=== PATIENT | female | born 1960 | race Caucasian/White ===

== ENCOUNTER → 2016-06-14 | Outpatient (CLI) | payer BC ==
[~2016-06-14] MED LIST: AMIT100T2 PO; AMT50 PO; BUSP-8 PO; CALC-354 PO; CYCL10TA6 PO; DOCU-94 PO; FRCT/ PO; GABA-113 PO; MELO15TA4 PO; MELO7.5T5 PO; METH500T37 PO; MISCCAP80 PO; MOML PO; MULT-506 PO; MULT-920 PO; NITR-5 PO; ONDA4TAB46 PO; PRM625 PO; PROC1TAB5 PO; TRAM-10 PO; TRAZ100T29 PO; VALA500T60 PO; ZOLM1TAB3 PO; [UNRECOGNIZED DRUG - OTHER]
== END | disposition home or self-care (01) ==
LOC: C.PAPS 16:12
PROVIDERS: ATTEND Obstetrics & Gynecology
DX: Z01.419 Encounter for gynecological examination (general) (routine) without abnormal findings (principal)

== ENCOUNTER → 2016-07-19 | Outpatient (CLI) | payer BC, OTHER | END | disposition home or self-care (01) | LOC: C.LAB 17:53 | PROVIDERS: ATTEND Psychiatry & Neurology Neurology | DX: R51 Headache (principal) ==

== ENCOUNTER → 2016-08-01 | Outpatient (CLI) | payer BC, OTHER ==
--- NOTE | 2016-08-01 16:14 | DIAGNOSTIC IMAGING REPORT ---
LUMBAR SPINE 5 VIEWS HISTORY: Pain M54.5 Low back pain COMPARISON: None. FINDINGS: There is no fracture. No subluxation. Mild degenerative disc change. Slight scoliosis. No evidence for compression deformity. IMPRESSION: Slight scoliosis. Mild degenerative disc change throughout Electronically signed by: Gen Valero M.D. 08/01/2016 4:13 PM Dictated Date/Time: 08/01/2016 4:12 PM
--- NOTE | 2016-08-01 16:16 | DIAGNOSTIC IMAGING REPORT ---
THORACIC SPINE 3 VIEWS HISTORY: Pain M54.6 Thoracic back pain COMPARISON: None. FINDINGS: There is no fracture. No subluxation. Mild degenerative disc change IMPRESSION: Mild degenerative disc change. No acute bony abnormality. Electronically signed by: Gen Valero M.D. 08/01/2016 4:15 PM Dictated Date/Time: 08/01/2016 4:14 PM
--- NOTE | 2016-08-01 16:18 | DIAGNOSTIC IMAGING REPORT ---
LEFT FOOT 3 VIEWS CLINICAL HISTORY: Left foot pain. FINDINGS: 3 views of the left foot are obtained. No prior studies are available for comparison at the time of dictation. The skeletal structures are osteopenic. No fracture is seen. The joint spaces of the foot appear well-maintained. The overlying soft tissues are within normal limits. IMPRESSION: No acute bony abnormality is seen in the left foot. Electronically signed by: Jose Manuel Noble M.D. 08/01/2016 4:16 PM Dictated Date/Time: 08/01/2016 4:15 PM
== END | disposition home or self-care (01) ==
LOC: C.RAD1850 14:28
PROVIDERS: ATTEND Internal Medicine
DX: M54.6 Pain in thoracic spine (principal); M54.5 Low back pain; M79.672 Pain in left foot

== ENCOUNTER → 2016-08-11 | Outpatient (CLI) | payer BC, OTHER ==
--- NOTE | 2016-08-11 16:47 | MAMMOGRAPHY REPORT ---
BILATERAL DIGITAL SCREENING MAMMOGRAM TOMOSYNTHESIS WITH CAD: 08/11/2016 TECHNIQUE: Breast tomosynthesis in addition to standard 2D mammography was performed. Current study was also evaluated with a Computer Aided Detection (CAD) system. COMPARISON: Comparison is made to exams dated: 03/25/2013 mammogram, 05/14/2014 mammogram - [facility], 12/19/2011 mammogram, 12/06/2010 mammogram, 11/22/2010 mammogram, and 05/16/2013 ma mmogram - [facility]. BREAST COMPOSITION: The tissue of both breasts is heterogeneously dense, which may obscure small ma sses. FINDINGS: There is a new oval partially circumscribed and partially obscured 15 mm mass seen within the left lateral breast at approximately 3:00, for which ultrasound and possible additional spot co mpression views are recommended for further evaluation. This may represent a cyst. The remainder of both breasts demonstrate small scattered round/oval circumscribed benign-appearing masses bilaterally, which are considered benign given the multiplicity and bilaterality and likely r epresent cysts. Scattered bilateral benign-appearing calcifications are not significantly changed. IMPRESSION: ACR BI-RADS CATEGORY 0: INCOMPLETE EVALUATION: NEED ADDITIONAL IMAGING EVALUATION Left 3:00 breast mass, for which additional imaging evaluation is recommended. The patient will be called to schedule an appointment. Approximately 10% of breast cancers are not detected with mammography. A negative mammographic repor t should not delay biopsy if a clinically suggestive mass is present. Kaylen Chambers M.D. ah/:08/11/2016 16:39:32 Service Support Representative: Makeda CAVAZOS(R)(M), [facility] letter sent: Addl Imaging 0 BI-RADS Code: ACR BI-RADS Category 0: Incomplete Evaluation: Need Additional Imaging Evaluation
== END | disposition home or self-care (01) ==
LOC: C.MAMM 13:27
PROVIDERS: ATTEND Obstetrics & Gynecology
DX: N63 Unspecified lump in breast (principal)

== ENCOUNTER → 2016-09-01 | Outpatient (CLI) | payer BC, OTHER ==
--- NOTE | 2016-09-01 16:36 | MAMMOGRAPHY REPORT ---
ULTRASOUND OF LEFT BREAST: 09/01/2016 CLINICAL HISTORY: Callback from screening mammogram for a 15 mm mass in the left lateral breast. COMPARISON: Comparison is made to exams dated: 08/11/2016 mammogram, 05/14/2014 mammogram, 05/31/2013 aspiration, 05/16/2013 ultrasound, 05/16/2013 mammogram, and 03/25/2013 mammogram - [facility]. TECHNIQUE: Real-time targeted ultrasound of the left breast was performed. FINDINGS: Real-time, high resolution targeted ultrasound was performed of the area of the mammographic mass in the left lateral breast. In the left breast at 4:00, 5 cm from the nipple, there is an oval anecho ic circumscribed mass which measures 1.3 x 0.6 x 1.3 cm. This corresponds with the newly visualized mammographic mass and is consistent with a benign simple cyst. IMPRESSION: ACR BI-RADS CATEGORY 2: BENIGN The mammographic mass corresponds with a benign 1.3 cm simple cyst in the left breast at 4:00 on ult rasound. There is no sonographic evidence of malignancy. A 1 year screening mammogram is recommend ed. The patient was verbally notified of the results. Kaylen Chambers M.D. /:09/01/2016 14:36:49 Music Artist: Kaylen Chambers MD, [facility] letter sent: Normal 1/2 BI-RADS Code: ACR BI-RADS Category 2: Benign
== END | disposition home or self-care (01) ==
LOC: C.MAMM 13:56
PROVIDERS: ATTEND Obstetrics & Gynecology
DX: N60.02 Solitary cyst of left breast (principal)

== ENCOUNTER → 2016-09-14 | Outpatient (CLI) | payer OTHER ==
[2016-09-14 16:48] LABS: LYME DISEASE AB IGM NEG (NEG)
[2016-09-14 16:51] LABS: LYME DISEASE AB IGG NEG (NEG)
== END | disposition home or self-care (01) ==
LOC: C.LAB1850 12:43
PROVIDERS: ATTEND Internal Medicine
DX: T14.8 Other injury of unspecified body region (principal); W57.XXXA Bitten or stung by nonvenomous insect and other nonvenomous arthropods, initial encounter

== ENCOUNTER → 2016-09-26 | Outpatient (CLI) | payer OTHER ==
[~2016-09-26] MED LIST changes: +GADAVIST IV PRN
--- NOTE | 2016-09-26 11:51 | DIAGNOSTIC IMAGING REPORT ---
MRI LUMBAR SPINE COMBINATION CLINICAL HISTORY: SEVERE BACK PAIN BILATERAL LEG RADICULOPATHY. TECHNIQUE: Sagittal and axial T1, T2 and STIR images were obtained. Imaging was performed before and after the administration of 7 cc of intravenous Gadavist COMPARISON STUDY: Conventional radiographic study dated 08/01/2016 OBSERVATIONS: There is a transitional vertebra present. There is lumbarization of the S1 vertebra. Please see numbering scheme as annotated on the PACS images. The vertebral bodies and posterior elements appear intact. There is no abnormal bony signal present to suggest a marrow replacement process. L1-2: No disc protrusions or extrusions. No evidence of spinal canal or neural foraminal compromise. L2-3: No disc protrusions or extrusions. No evidence of spinal canal or neural foraminal compromise. L3-4: No disc protrusions or extrusions. No evidence of spinal canal or neural foraminal compromise. L4-5: There is a circumferential disc bulge with minimal triangular spinal canal narrowing L5-S1: No disc protrusions or extrusions. No evidence of spinal canal or neural foraminal compromise. The conus medullaris and cauda equina appear normal. There are multiple large sacral Tarlov cysts most pronounced at the S2 and S3 levels. There is sigmoid diverticulosis There is a 24 mm left adnexal cyst likely ovarian. There are no pathologically enhancing masses. IMPRESSION: 1. 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 Disc bulge with interval transverse spinal canal narrowing at the L4-5 level 3. Multiple large sacral Tarlov cysts Electronically signed by: Woodrow Ferrera M.D. 09/26/2016 11:49 AM Dictated Date/Time: 09/26/2016 11:43 AM
== END | disposition home or self-care (01) ==
LOC: C.OPENMRI 09:40
PROVIDERS: ATTEND Internal Medicine
DX: M51.26 Other intervertebral disc displacement, lumbar region (principal); G54.8 Other nerve root and plexus disorders

== ENCOUNTER → 2016-09-30 | Outpatient (CLI) | payer OTHER ==
[~2016-09-30] MED LIST changes: -GADAVIST IV PRN
[2016-09-30 16:46] LABS: BASO % 0.5 %; BASO ABS # 0.03 K/uL (0-0.2); COMPLETE YES; EOS % 2.8 %; HEMATOCRIT 38.8 % (37-47); LYMPH % 24.4 %; LYMPH ABS # 1.47 K/uL (1.2-3.4); MEAN CELL VOLUME 96.3 fL (80-100); MEAN CORPUSCULAR HEMOGLOBIN 30.5 pg (25-34); MEAN CORPUSCULAR HGB CONC 31.7 g/dl (32-36); MEAN PLATELET VOLUME 10.5 fL (7.4-10.4); MONO % 7.8 %; NEUT % 64.5 %; PLATELET COUNT 293 K/uL (130-400); RED BLOOD COUNT 4.03 M/uL (4.2-5.4); WHITE BLOOD COUNT 6.02 K/uL (4.8-10.8)
[2016-09-30 17:04] LABS: CHLORIDE 106 mmol/L (98-107); SODIUM 141 mmol/L (136-145)
[2016-09-30 17:39] LABS: ALKALINE PHOSPHATASE 40 U/L (45-117); ALT/SGPT 24 U/L (12-78); AST/SGOT 17 U/L (15-37); C-REACTIVE PROTEIN < 0.29 mg/dl (0-0.29)
[2016-09-30 19:32] LABS: BLOOD UREA NITROGEN 23 mg/dl (7-18); CARBON DIOXIDE 28 mmol/L (21-32); CREATININE 0.75 mg/dl (0.60-1.20)
== END | disposition home or self-care (01) ==
LOC: C.LABBC 13:38
PROVIDERS: ATTEND Orthopaedic Surgery Orthopaedic Surgery of the Spine
DX: M54.9 Dorsalgia, unspecified (principal)

== ENCOUNTER → 2016-11-03 | Outpatient (CLI) | payer OTHER ==
--- NOTE | 2016-11-16 12:26 | History and Physical ---
History & Physical Date Nov 16, 2016. Chief Complaint Back and lower extremity pain, numbness History of Present Illness The patient is a 56 year old female with complaints of Past Medical/Surgical History ASTHMA, ANXIETY, ANEMIA, OBESITY, NO CARCINOMA, HTN, COPD. SURGICAL: hYSTERECTOMY Additional History Hepatic Disease: No Endocrine Disorder: No Kidney Disease: No Hypertension: No Heart Disease: No Bleeding Tendencies: No Infectious Diseases: No Allergies Coded Allergies: Acetaminophen (Verified Allergy, Unknown, n/v, 11/03/16) Codeine (Verified Allergy, Unknown, hives, 11/03/16) Hydrocodone (Verified Allergy, Unknown, n/v, 11/03/16) Latex1 -Allergic Contact Dermititis (Verified Allergy, Unknown, contact dermatitis, 11/03/16) Home Medications Scheduled Amitriptyline Hcl (Elavil), 100 MG PO HS Buspirone Hcl (Buspirone Hcl), 10 MG PO QAM Calcium Carbonate-Cholecalcife (Caltrate 600+D), 1 TAB PO QAM Estrogens, Conjugated (Premarin), 0.625 MG PO HS Meloxicam (Mobic), 15 MG PO QAM Methocarbamol (Robaxin), 500-1,000 MG PO UD Multiple Vitamins W/ Minerals (Airborne), 1 TAB PO QAM Multivitamin (Multivitamin), 1 TAB PO QAM Trazodone Hcl (Trazodone), 200 MG PO HS Scheduled PRN Cyclobenzaprine Hcl (Flexeril), 10 MG PO TID PRN for PRN Nitrofurantoin Monohyd Macrocr (Macrobid), 100 MG PO BID PRN for PRN Ondansetron Hcl (Zofran), 4 MG PO Q6 PRN for Nausea Prochlorperazine Maleate (Compazine), 10 MG PO Q6H PRN for Nausea Tramadol (Ultram), 50 MG PO Q8H PRN for Pain Valacyclovir (Valtrex), 500 MG PO BID PRN for PRN Zolmitriptan (Zomig), 5 MG PO PRN PRN for Migraine Physical Examination Skin: warm/dry, no rash Eyes: normal inspection, EOMI, sclerae normal ENT: normal ENT inspection, pharynx normal Head: normocephalic, atraumatic Neck: supple, no adenopathy, trachea midline Respiratory/Chest: lungs clear Cardiovascular: regular rate, rhythm Abdomen / GI: normal bowel sounds Back: normal inspection Extremities: normal inspection, normal range of motion Neurologic/Psych: no motor/sensory deficits, alert, normal reflexes, oriented x 3 Diagnosis LARGE TARLOV CYST SACRUM ASA Classification: ASA Class II Plan of Treatment sURGICAL DECOMPRESSION OF TARLOV CYST
== END | disposition home or self-care (01) ==
LOC: C.LAB 14:31
PROVIDERS: ATTEND Internal Medicine
DX: R53.83 Other fatigue (principal)

== ENCOUNTER 2016-11-17 06:36 | Observation (INO) | payer OTHER ==
[2016-11-03 14:43] VITALS: BMI 27.0
--- NOTE | 2016-11-03 15:23 | PAT Medication Instructions ---
Service Date Nov 03, 2016. Current Home Medication List Amitriptyline Hcl (Elavil), 100 MG PO HS Buspirone Hcl (Buspirone Hcl), 10 MG PO QAM Calcium Carbonate-Cholecalcife (Caltrate 600+D), 1 TAB PO QAM Cyclobenzaprine Hcl (Flexeril), 10 MG PO TID PRN for PRN Estrogens, Conjugated (Premarin), 0.625 MG PO HS Meloxicam (Mobic), 15 MG PO QAM Methocarbamol (Robaxin), 500-1,000 MG PO UD Multiple Vitamins W/ Minerals (Airborne), 1 TAB PO QAM Multivitamin (Multivitamin), 1 TAB PO QAM Nitrofurantoin Monohyd Macrocr (Macrobid), 100 MG PO BID PRN for PRN Ondansetron Hcl (Zofran), 4 MG PO Q6 PRN for Nausea Prochlorperazine Maleate (Compazine), 10 MG PO Q6H PRN for Nausea Tramadol (Ultram), 50 MG PO Q8H PRN for Pain Trazodone Hcl (Trazodone), 200 MG PO HS Valacyclovir (Valtrex), 500 MG PO BID PRN for PRN Zolmitriptan (Zomig), 5 MG PO PRN PRN for Migraine Medication Instructions For Your Scheduled Surgery - Hold the following medications the morning of surgery: Meloxicam (Mobic), 15 MG PO QAM (otherwise okay to continue per surgeon) Multiple Vitamins W/ Minerals (Airborne), 1 TAB PO QAM Multivitamin (Multivitamin), 1 TAB PO QAM Methocarbamol (Robaxin), 500-1,000 MG PO UD Cyclobenzaprine Hcl (Flexeril), 10 MG PO TID PRN for PRN Calcium Carbonate-Cholecalcife (Caltrate 600+D), 1 TAB PO QAM - Take the following medications the morning of surgery with a sip of water OTHERWISE NOTHING TO EAT OR DRINK AFTER MIDNIGHT: Tramadol (Ultram), 50 MG PO Q8H PRN for Pain (may take if needed up to 4 hours prior to surgery) Valacyclovir (Valtrex), 500 MG PO BID PRN for PRN Nitrofurantoin Monohyd Macrocr (Macrobid), 100 MG PO BID PRN for PRN Zolmitriptan (Zomig), 5 MG PO PRN PRN for Migraine Buspirone Hcl (Buspirone Hcl), 10 MG PO QAM Ondansetron Hcl (Zofran), 4 MG PO Q6 PRN for Nausea Prochlorperazine Maleate (Compazine), 10 MG PO Q6H PRN for Nausea - Take the following medications as scheduled the night before surgery: Amitriptyline Hcl (Elavil), 100 MG PO HS Estrogens, Conjugated (Premarin), 0.625 MG PO HS Tramadol (Ultram), 50 MG PO Q8H PRN for Pain Methocarbamol (Robaxin), 500-1,000 MG PO UD Cyclobenzaprine Hcl (Flexeril), 10 MG PO TID PRN for PRN Trazodone Hcl (Trazodone), 200 MG PO HS Valacyclovir (Valtrex), 500 MG PO BID PRN for PRN Nitrofurantoin Monohyd Macrocr (Macrobid), 100 MG PO BID PRN for PRN Zolmitriptan (Zomig), 5 MG PO PRN PRN for Migraine Ondansetron Hcl (Zofran), 4 MG PO Q6 PRN for Nausea Prochlorperazine Maleate (Compazine), 10 MG PO Q6H PRN for Nausea If you have any questions please call us at [phone] or [phone] or [phone]
[2016-11-03 15:47] LABS: BASO % 0.2 %; BASO ABS # 0.01 K/uL (0-0.2); COMPLETE YES; EOS % 1.8 %; HEMATOCRIT 36.5 % (37-47); IG% 0.2 %; LYMPH % 22.7 %; LYMPH ABS # 1.11 K/uL (1.2-3.4); MEAN CELL VOLUME 95.1 fL (80-100); MEAN CORPUSCULAR HEMOGLOBIN 31.8 pg (25-34); MEAN CORPUSCULAR HGB CONC 33.4 g/dl (32-36); MEAN PLATELET VOLUME 9.4 fL (7.4-10.4); MONO % 8.2 %; NEUT % 66.9 %; PLATELET COUNT 250 K/uL (130-400); RED BLOOD COUNT 3.84 M/uL (4.2-5.4); WHITE BLOOD COUNT 4.89 K/uL (4.8-10.8)
[2016-11-03 15:50] LABS: URINE APPEARANCE CLEAR (CLEAR); URINE BILIRUBIN NEG (NEG); URINE COLOR YELLOW; URINE NITRITE NEG (NEG); URINE SPECIFIC GRAVITY 1.022 (1.000-1.030); UROBILINOGEN NEG (NEG)
[2016-11-03 15:54] LABS: MANUAL MICROSCOPIC REQUIRED? NO; REVIEW REQ? NO
[2016-11-03 15:55] LABS: INR 0.9 (0.9-1.1); PARTIAL THROMBOPLASTIN RATIO 0.9; PROTHROMBIN TIME (PATIENT) 9.4 SECONDS (9.0-12.0)
--- NOTE | 2016-11-03 15:57 | DIAGNOSTIC IMAGING REPORT ---
CHEST 2 VIEWS ROUTINE CLINICAL HISTORY: PAT preoperative evaluation COMPARISON STUDY: 04/15/2014 FINDINGS: The bones soft tissues and hemidiaphragms are normal. The cardiomediastinal silhouette is normal. The lungs are clear. The pulmonary vasculature is normal. IMPRESSION: Negative chest. Electronically signed by: Gen Valero M.D. 11/03/2016 3:55 PM Dictated Date/Time: 11/03/2016 3:54 PM
[2016-11-03 16:03] LABS: BUN/CREATININE RATIO 20.5 (10-20); CALCIUM 8.8 mg/dl (8.5-10.1); CREATININE 0.77 mg/dl (0.60-1.20); POTASSIUM 3.8 mmol/L (3.5-5.1)
[~2016-11-17] VITALS: Ht 167.6 cm; Wt 76.2 kg
[2016-11-17] VITALS (12 sets, daily range): BP systolic 106–142; BP diastolic 73–85; PULSE 60–69; TEMP 36.3–36.7; O2SAT 95–100; Ht 167.6 cm; Wt 76.2 kg
--- NOTE | 2016-11-17 06:31 | History and Physical ---
History & Physical Date Nov 17, 2016. Chief Complaint back and leg pain worsening overtime History of Present Illness The patient is a 56 year old female with complaints of Additional History Hepatic Disease: No Endocrine Disorder: No Kidney Disease: No Hypertension: No Heart Disease: No Bleeding Tendencies: No Infectious Diseases: No Allergies Coded Allergies: Acetaminophen (Verified Allergy, Unknown, n/v, 11/03/16) Codeine (Verified Allergy, Unknown, hives, 11/03/16) Hydrocodone (Verified Allergy, Unknown, n/v, 11/03/16) Latex1 -Allergic Contact Dermititis (Verified Allergy, Unknown, contact dermatitis, 11/03/16) Home Medications Scheduled Amitriptyline Hcl (Elavil), 100 MG PO HS Buspirone Hcl (Buspirone Hcl), 10 MG PO QAM Calcium Carbonate-Cholecalcife (Caltrate 600+D), 1 TAB PO QAM Estrogens, Conjugated (Premarin), 0.625 MG PO HS Meloxicam (Mobic), 15 MG PO QAM Methocarbamol (Robaxin), 500-1,000 MG PO UD Multiple Vitamins W/ Minerals (Airborne), 1 TAB PO QAM Multivitamin (Multivitamin), 1 TAB PO QAM Trazodone Hcl (Trazodone), 200 MG PO HS Scheduled PRN Cyclobenzaprine Hcl (Flexeril), 10 MG PO TID PRN for PRN Nitrofurantoin Monohyd Macrocr (Macrobid), 100 MG PO BID PRN for PRN Ondansetron Hcl (Zofran), 4 MG PO Q6 PRN for Nausea Prochlorperazine Maleate (Compazine), 10 MG PO Q6H PRN for Nausea Tramadol (Ultram), 50 MG PO Q8H PRN for Pain Valacyclovir (Valtrex), 500 MG PO BID PRN for PRN Zolmitriptan (Zomig), 5 MG PO PRN PRN for Migraine Physical Examination Skin: warm/dry Eyes: normal inspection ENT: normal ENT inspection Head: normocephalic Neck: supple Respiratory/Chest: lungs clear Cardiovascular: regular rate, rhythm Abdomen / GI: normal bowel sounds Back: normal inspection Extremities: normal inspection Genitourinary - Female: external genitalia normal Neurologic/Psych: no motor/sensory deficits ASA Classification: ASA Class II Plan of Treatment Decompression of Tarlov cyst
[~2016-11-17 06:36] MED LIST changes: -AMIT100T2 PO; +CEFAZOLIN 2000 MG/60 ML D5W IV SCH; -DOCU-94 PO; -FRCT/ PO; -GABA-113 PO; +LACTATED RINGER'S 1000ML 1,000 ML IV SCH; -MELO15TA4 PO; -MISCCAP80 PO; -MOML PO; +SODIUM CHLORIDE 0.9% 1000ML 1,000 ML IV SCH; -[UNRECOGNIZED DRUG - OTHER]
--- NOTE | 2016-11-17 06:47 | History & Physical Bridge Note ---
H&P Re-Evaluation Bridge Note: I have examined the patient, reviewed the History & Physical and in the interval since the performance of the History & Physical I have noted the following changes of clinical significance: No changes noted
[2016-11-17] MEDS ORDERED: THROMBIN FOR SOLN 20000 UNIT KIT ONE (07:55)
[2016-11-17] MEDS ORDERED: GELATIN SPONGE SZ 100 ONE (07:55)
[2016-11-17] MEDS ORDERED: BACITRACIN 50000 UNIT VIAL ONE (07:56)
[2016-11-17] MEDS ORDERED: VANCOMYCIN HCL 1000MG/20ML VIAL ONE (07:56)
[2016-11-17] MEDS ORDERED: GLYCOPYRROLATE INJ 0.2 MG/ML VIAL ONE (07:58)
[2016-11-17] MEDS ORDERED: ROCURONIUM BROMIDE 10 MG/ML 5 ML VIAL ONE (07:58)
[2016-11-17] MEDS ORDERED: MIDAZOLAM HCL 1 MG/ML 2ML VIAL ONE (07:58)
[2016-11-17] MEDS ORDERED: EpHEDrine SULFATE INJ 50 MG/ML AMP ONE (07:58)
[2016-11-17] MEDS ORDERED: PROPOFOL IV EMULSION 10 MG/ML 20 ML VIAL IV ONE (07:58)
[2016-11-17] MEDS ORDERED: SUCCINYLCHOLINE CHLORIDE 20 MG/ML 10 ML VIAL IV ONE (07:58)
[2016-11-17] MEDS ORDERED: LIDOCAINE HCL 2% 2 ML VIAL (20MG/ML) ONE (07:58)
[2016-11-17] MEDS ORDERED: PHENYLEPHRINE HCL INJ 10 MG/ML VIAL ONE (07:58)
[2016-11-17] MEDS ORDERED: FENTANYL CITRATE INJ 50 MCG/1 ML 2 ML VIAL ONE ×2 (07:58)
[2016-11-17] MEDS ORDERED: ONDANSETRON INJ 2 MG/ML 2 ML VIAL ONE (07:58)
[2016-11-17] MEDS ORDERED: NEOSTIGMINE METHYLSULFATE 5 MG/5 ML SYR ONE (07:58)
[2016-11-17] MEDS ORDERED: DEXAMETHASONE SOD INJ 4 MG/ML VIAL ONE (07:58)
[2016-11-17] MEDS ORDERED: BUPIVACAINE 0.5 % 5 MG/1 ML MPF 30ML VIAL ONE ×2 (08:03→08:08)
[2016-11-17] MEDS ORDERED: HYDROmorphone INJ 2 MG/ML SYR/VIAL ONE ×2 (08:43→10:44)
[2016-11-17] MEDS ORDERED: ATROPINE SULFATE 0.1 MG/ML 5ML SYR IV PRN (09:15)
[2016-11-17] MEDS ORDERED: EpHEDrine SULFATE INJ 50 MG/ML AMP IV PRN (09:15)
[2016-11-17] MEDS ORDERED: ONDANSETRON INJ 2 MG/ML 2 ML VIAL IV PRN (09:15)
[2016-11-17] MEDS ORDERED: LARYING-O-JET KIT (LTA) ONE ×2 (09:35)
[2016-11-17] MEDS ORDERED: MAGNESIUM HYDROXIDE SUSP 30 ML UDC PO PRN (10:15)
[2016-11-17] MEDS ORDERED: PROMETHAZINE HCL INJ 12.5 MG in SODIUM CHLORIDE 0.9% 50ML 50 ML IV PRN (10:15)
[2016-11-17] MEDS ORDERED: METOCLOPRAMIDE HCL INJ 5 MG/ML 2 ML VIAL IV PRN (10:15)
[2016-11-17] MEDS ORDERED: PROCHLORPERAZINE MALEATE 10 MG TAB PO PRN (10:15)
[2016-11-17] MEDS ORDERED: ONDANSETRON 4 MG TAB PO PRN (10:15)
[2016-11-17] MEDS ORDERED: HYDROmorphone INJ 1 MG/ML SYR IV PRN ×2 (10:15→10:45)
[2016-11-17] MEDS ORDERED: LORAZEPAM INJ 1 MG in SYRINGE 0 ML IV PRN (10:15)
[2016-11-17] MEDS ORDERED: LORAZEPAM 1 MG TAB PO PRN (10:15)
[2016-11-17] MEDS ORDERED: TRAMADOL HCL 50 MG TAB PO PRN (10:15)
--- NOTE | 2016-11-17 10:17 | [facility] Operative Report ---
Operative Report Operative Date Nov 17, 2016. Pre-Operative Diagnosis Low Back Pain, Tarlov Cyst Procedure(s) Performed Laminectomy S1-S2 with impression of Tarlov cyst S1-S2 of the spine Surgeon Dr. Gutierrez Clip Coater Surgeon(s) Orlin Shook PA-C Estimated Blood Loss 50ml Findings Tarlov cyst erosion of the posterior aspect of the sacrum at S1-S2 Specimens none per surgeon Complication(s) None Disposition Recovery Room / PACU Indications Continued pain abilities to walk or sit Description of Procedure Patient was taken [facility] the [facility] placed prone on the operative Clement table. Tissue structures were protected. Eyes were protected after successful intubated anesthetic. She was draped sterile. A skin incision at the S1 area of the sacrum down to S2 roughly at the L5-S1 interspace. A deep self-retaining retractor. The erosion the posterior aspect of the sacrum was completely eroded and there is actually no bone on the posterior elements. We dissected out the cyst from the remaining lamina. She got down to the S1-S2 nerve roots as well to compress the 0 were fluid filled with no real cyst type structures of root and that we decompress. Not appear to be any communication with the cerebrospinal fluid the cauda equina. We irrigated thoroughly every nerve root was free of obstruction. The deeper structures with 1 Vicryl suture reinforced with a running 1 Vicryl suture. The subcuticular layer closed with 0 Vicryl suture 3-0 nylon the skin surface. After closure we packed off the synovial cyst and to follow up cyst interval fall optimistically prevent reoccurrence. DuraSeal over the structures as well. She was on the skin surface sterile dressing applied the patient successfully returned supine and extubated to PACU stable. Count was correct at the close of the procedure estimated blood loss less than 50 mL KARIME and report thank you I attest to the content of the Intraoperative Record and any orders documented therein. Any exceptions are noted below.
[2016-11-17] MEDS: FENTANYL CITRATE INJ 50 MCG/1 ML 2 ML VIAL IV PRN ×4 (10:26→10:41)
[2016-11-17 10:41] LABS: HEMATOCRIT 34.1 % (37-47)
--- NOTE | 2016-11-17 11:22 | Anesthesiology Progress Note ---
Anesthesia Post Op Note Date & Time Nov 17, 2016 at 11:21 Vital Signs Pain Intensity: 5 Vital Signs Past 12 Hours Date Time Temp Pulse Resp B/P (MAP) Pulse Ox O2 Delivery O2 Flow Rate FiO2 11/17/16 11:15 36.2 70 16 123/92 98 Nasal Cannula 4 11/17/16 11:05 36.2 62 16 129/77 98 Mask 10 11/17/16 10:55 74 16 141/97 98 Mask 10 11/17/16 10:45 73 16 137/97 94 Mask 10 11/17/16 10:36 79 16 149/94 99 Mask 10 11/17/16 10:26 86 16 135/70 99 Mask 10 11/17/16 10:17 36.0 80 16 126/67 99 Mask 10 11/17/16 06:58 36.7 68 16 142/77 (98) 97 Room Air Notes Mental Status: alert / awake / arousable, participated in evaluation Pt Amnestic to Procedure: Yes Nausea / Vomiting: adequately controlled Pain: adequately controlled Airway Patency, RR, SpO2: stable & adequate BP & HR: stable & adequate Hydration State: stable & adequate Anesthetic Complications: no major complications apparent
--- NOTE | 2016-11-17 11:57 | DIAGNOSTIC IMAGING REPORT ---
LUMBAR SPINE, INTRAOPERATIVE FLUOROSCOPY HISTORY: Laminectomy. FLUOROSCOPY TIME: 4 seconds. FINDINGS: Intraoperative fluoroscopy was provided for the lumbar spine. 2 fluoroscopic spot images were obtained. IMPRESSION: Fluoroscopy provided for a lumbar decompression Electronically signed by: Gen Valero M.D. 11/17/2016 11:56 AM Dictated Date/Time: 11/17/2016 11:55 AM
[2016-11-17] MEDS ORDERED: IV FLUIDS COMPLETED PRN (12:15)
[2016-11-17] MEDS: SODIUM CHLORIDE 0.9% 1000ML 1,000 ML IV SCH (13:44)
[2016-11-17] MEDS: HYDROmorphone INJ 1 MG/ML SYR IV PRN ×2 (13:46→20:09)
[2016-11-17] MEDS: CEFAZOLIN IV 1,000 MG in DEXTROSE 5% 50ML 50 ML IV SCH (16:11)
[2016-11-17] MEDS: KETOROLAC TROMETHAMINE 30 MG/ML VIAL IV SCH ×2 (16:12→22:17)
[2016-11-17] MEDS ORDERED: NURSING VERBAL MED ORDER ONE (18:15)
[2016-11-17] MEDS: ONDANSETRON INJ 2 MG/ML 2 ML VIAL IV PRN (18:29)
[2016-11-17] MEDS ORDERED: ZOLMITRIPTAN 5 MG INH PRN (18:45)
[2016-11-17] MEDS ORDERED: ZOLMITRIPTAN 5 MG PRN (19:00)
[2016-11-17] MEDS: DEXAMETHASONE INJ 10 MG in SYRINGE 0 ML IV SCH (20:09)
[2016-11-17] MEDS: TRAZODONE HCL 100 MG TAB PO SCH (21:12)
[2016-11-17] MEDS: ESTROGENS, CONJUGATED 0.625 MG TAB PO SCH (21:14)
[2016-11-17] MEDS: AMITRIPTYLINE HCL 50 MG TAB PO SCH (21:14)
[2016-11-18] MEDS: SODIUM CHLORIDE 0.9% 1000ML 1,000 ML IV SCH ×2 (00:02→10:59)
[2016-11-18] MEDS: CEFAZOLIN IV 1,000 MG in DEXTROSE 5% 50ML 50 ML IV SCH ×2 (00:02→07:40)
[2016-11-18] MEDS: HYDROmorphone INJ 1 MG/ML SYR IV PRN ×3 (00:16→20:46)
[2016-11-18 02:56] VITALS: BP 115/74; PULSE 69; TEMP 36.6; O2SAT 97
[2016-11-18] MEDS: DEXAMETHASONE INJ 10 MG in SYRINGE 0 ML IV SCH ×3 (04:13→19:12)
[2016-11-18] MEDS: KETOROLAC TROMETHAMINE 30 MG/ML VIAL IV SCH ×3 (04:13→15:17)
[2016-11-18] MEDS ORDERED: BISACODYL 10 MG SUPP PR PRN (06:00)
[2016-11-18] MEDS ORDERED: BISACODYL 5 MG TABEC PO PRN (06:00)
[2016-11-18 06:51] VITALS: BP 110/69; PULSE 63; TEMP 36.4; O2SAT 98
[2016-11-18] MEDS ORDERED: MULTIPLE VITAMINS PO SCH (09:00)
[2016-11-18] MEDS ORDERED: MINERALS PO SCH (09:00)
[2016-11-18] MEDS: MULTIVITAMIN TAB PO SCH (09:19)
[2016-11-18] MEDS: CEROVITE ADV FORMULA TAB PO SCH (09:19)
[2016-11-18] MEDS: CALCIUM 600MG + VIT D 400 IU TAB PO SCH (09:19)
[2016-11-18] MEDS: POLYETHYLENE (MIRALAX) 17 GM PACK PO SCH (09:19)
[2016-11-18] MEDS: ONDANSETRON INJ 2 MG/ML 2 ML VIAL IV PRN (10:10)
[2016-11-18 11:13] VITALS: BP 101/69; PULSE 73; TEMP 36.7; O2SAT 94
--- NOTE | 2016-11-18 12:43 | Progress Note ---
Subjective Date of Service: Nov 18, 2016. Subjective Pt evaluation today including: chart review, lab review, review of inpatient medication list Voiding: no voiding problems Review of Systems Musculoskeletal: + muscle pain Patient comfortable and sleeping on rounds. Stable All Other Systems: Reviewed and Negative Objective Vital Signs Date Time Temp Pulse Resp B/P (MAP) Pulse Ox O2 Delivery O2 Flow Rate FiO2 11/18/16 11:13 36.7 73 12 101/69 (80) 94 Room Air 11/18/16 08:09 Nasal Cannula 2.0 11/18/16 06:51 36.4 63 19 110/69 (83) 98 Nasal Cannula 2.0 11/18/16 02:56 36.6 69 16 115/74 (88) 97 Nasal Cannula 2.0 11/17/16 23:58 Nasal Cannula 2.0 11/17/16 22:57 36.7 69 16 121/79 (93) 96 Nasal Cannula 11/17/16 19:07 36.4 67 19 124/79 (94) 95 Nasal Cannula 2.0 11/17/16 16:00 100 Nasal Cannula 2.0 11/17/16 15:47 36.4 66 16 133/83 (100) 100 Nasal Cannula 2.0 11/17/16 14:27 36.6 62 17 118/76 (90) 99 Nasal Cannula 2.0 11/17/16 13:27 60 119/79 (92) 97 Nasal Cannula 2.0 11/17/16 13:14 36.3 11/17/16 12:58 62 14 134/82 (99) 100 Room Air Laboratory Results Last 24 Hours Test 11/18/16 05:35 Hepatitis C Antibody Screen NEG Assessment and Plan apperas stable at this time. Ambulatory. Plan: ambulate today. Home in morning november 19 Continued [facility] stay due to: ambulation difficulties Discharge planning: home
[2016-11-18] MEDS ORDERED: NURSING VERBAL MED ORDER ONE (13:30)
[2016-11-18 15:22] VITALS: BP 106/69; PULSE 67; TEMP 36.5; O2SAT 98
--- NOTE | 2016-11-18 16:30 | Discharge Instructions ---
Discharge Instructions Date of Service Nov 18, 2016. Admission Reason for Admission: Tarlov Cyst Discharge Discharge Diagnosis / Problem: same Discharge Goals Goal(s): Improve function Activity Recommendations Activity Limitations: as noted below Lifting Limitations: gradually increase as tolerated Exercise/Sports Limitations: until after follow-up appointment May Resume Sexual Activity: after follow-up appointment Shower/Bathe: keep incision dry . Instructions / Follow-Up Instructions / Follow-Up MEDICATIONS: Please take your prescriptions as instructed at your pre-op appointment. SPECIAL CARE: The following information is intended to answer some of the common questions and concerns regarding your surgery. Each patient is an individual and receives individual counselling throughout the course of treatment, from diagnosis to surgery all the way through recovery. What follows is not an exhaustive list, but should be a useful guide to some of the common questions and concerns patients have regarding their surgeries. These are not provided to keep you from calling us; rather, they give you something accurate and concrete to reference as you recover from your procedure. If you need us, we are available to you. As always, if you are not sure about something, call us at [phone]. MEDICAL EMERGENCIES: For these conditions, call 911 or go to your local hospital-based Emergency Department - not [facility] or equivalent. * Paralysis * Severe chest pain or difficulty breathing * Swelling or redness of either leg Spine procedures can be rather complex and though complications are rare, they do occur. In such cases, effective advice regarding emergency situations cannot always be addressed over the telephone. You may be referred to the emergency department for more effective management of your problem. Activity Limitations: It is important to give your body time to heal, so please limit your activities : * In general, don't do anything that moves your spine too much. You should avoid contact sports, twisting or heavy lifting while you recover. * 5-10 pounds is all you should attempt to lift. * You should not plan on driving for approximately 3 weeks and you should avoid traveling more than 30-45 minutes at a time. Longer trips should be broken down with walking breaks spaced appropriately. * Physical therapy is not usually required. * Walking and good posture practices will help you recover and regain your function. * Avoid straining or sudden changes in position. * In general, the goal is to take it easy and recover. Don't cause any new problems. Just relax. Showers: * Do not take a bath, use a Jacuzzi or hot tub or otherwise submerge your incision. * It is usually safe to take a shower 4-5 days after your surgery. * Your incision does not require any special creams or ointments. * Simply clean it with soap and water, dry and re-dress with a clean bandage afterwards. Incision: * Keep incision clean, dry and protected until your first follow-up appointment. * Some amount of drainage and redness is normal. Any drainage should be fairly clear and not have a foul odor. * If you feel anything is wrong or you have excessive drainage, please call us. * Your stitches and jessika will be removed 10-14 days after your surgery. At the time of your first post-op visit. * Neck surgeries are typically closed with a suture underneath the skin. The steri-strips over the incision should be maintained until we see you in the office. Bracing: * You may be provided with a back or neck brace to encourage good posture and prevent injury. It will remind you not to do too much as you heal and will alert others to the fact that you have had a surgery. * Back braces may be removed for showers and when you are resting at home. They must be worn when you are walking around for any period of time or for travel. * For neck surgery, you will likely be provided with two cervical collars. The soft collar (Dowell or foam rubber) is worn most commonly throughout the day and while sleeping. The plastic collar (provided at the hospital) is for showering/bathing. * Except while eating, collars should remain in place. More specifically, bracing is provided for a purpose and should be worn. * Please obtain your brace or collars prior to your operation and bring them to the hospital with you on the day of surgery. * You should also bring your collars to your post-op appointment with Dr. Gutierrez. You should always take good care of your body and practice healthy habits, especially following surgery. You should: * Follow your doctor's treatment plan * Sit and stand properly with good posture (ears over shoulders, shoulders over hips) Don't slouch * Learn to lift correctly * Exercise regularly (low-impact aerobic exercise is especially good, but check with your doctor first) * Generally, be up and walking for 5-10 minutes at a time at least 3-4 times per day from the day you get home * Increasing walking to tolerance until you can walk for 20-30 minutes at a time * Attain and maintain a healthy body weight * Eat healthy foods ( a well-balanced, low-fat diet rich in fruits and vegetables) and get enough calcium * Avoid excessive use of alcohol When to call our office - If you notice any of the following: * Increased pain not relieve by pain medicine * Fevers greater then 100 degrees F, chills or flu symptoms * Increased redness around incision * Drainage from the incision that is not clear * Any foul smelling drainage * Swelling or fluid collection beneath the skin Miscellaneous: * In the hospital, you may be given a walker or cane for support while walking. These are temporary needs and are intended to prevent injuries due to falls. You may discontinue them when you feel strong and steady enough on your feet. * Sleep in a comfortable position. We find that many patients find a lounge chair or recliner with several pillows to be beneficial in the early post-operative period. * The support stockings should be used for 7-10 days and may be discontinued when you are back to walking more and conducting usual household activities. No problem is insignificant. We are here to help you and get you well. Contact us at [phone]. Definitions: Foraminotomy: If part of the disc or a bone spur (osteophyte) is pressing on a nerve as it leaves the vertebra (through an exit called the foramen), a foraminotomy may be done. Otomy means "to make an opening." A foraminotomy is making the opening of the foramen larger, so the nerve can exit without being compressed. Laminotomy: Similar to the foraminotomy, a laminotomy makes a larger opening, this time in your bony plate protecting your spinal canal and spinal cord (the lamina). The lamina may be pressing on your nerve, so the surgeon may make more room for the nerves using a laminotomy. Laminectomy: Sometimes, a laminotomy is not sufficient. The surgeon may need to remove all or part of the lamina. This procedure is called a laminectomy. This can often be done at many levels without any harmful effects. Current Hospital Diet Patient's current hospital diet: Regular Diet Discharge Diet Recommended Diet: Regular Diet Procedures Procedures Performed: Laminectomy S1, Decompression of Tarlov Cyst Pending Studies Studies pending at discharge: no Medical Emergencies . Who to Call and When: Medical Emergencies: If at any time you feel your situation is an emergency, please call 911 immediately. . Non-Emergent Contact Non-Emergency issues call your: Primary Care Provider Call Non-Emergent contact if: you have any medication questions . "Provider Documentation" section prepared by Hao Gutierrez. . VTE Core Measure Inpt VTE Proph given/why not?: Treatment not indicated
[2016-11-18] MEDS: AMITRIPTYLINE HCL 50 MG TAB PO SCH (20:49)
[2016-11-18] MEDS: ESTROGENS, CONJUGATED 0.625 MG TAB PO SCH (20:49)
[2016-11-18] MEDS: TRAZODONE HCL 100 MG TAB PO SCH (20:49)
[2016-11-18 23:13] VITALS: BP 117/74; PULSE 75; TEMP 36.6; O2SAT 99
[2016-11-19] MEDS: HYDROmorphone INJ 1 MG/ML SYR IV PRN (03:56)
[2016-11-19] MEDS: DEXAMETHASONE INJ 10 MG in SYRINGE 0 ML IV SCH (03:57)
[2016-11-19 07:23] VITALS: O2SAT 95
[2016-11-19 07:53] VITALS: BP 118/79; PULSE 62; TEMP 36.5; O2SAT 95
[2016-11-19] MEDS: CEROVITE ADV FORMULA TAB PO SCH (08:29)
[2016-11-19] MEDS: MULTIVITAMIN TAB PO SCH (08:29)
[2016-11-19] MEDS: POLYETHYLENE (MIRALAX) 17 GM PACK PO SCH (08:29)
[2016-11-19] MEDS: CALCIUM 600MG + VIT D 400 IU TAB PO SCH (08:29)
[2016-11-19] MEDS ORDERED: MELOXICAM 7.5 MG TAB PO SCH (09:00)
--- NOTE | 2016-11-19 09:03 | Discharge Summary ---
Orthopedic Discharge Summary Admission Date/Reason Nov 17, 2016 at 10:13 Tarlov Cyst. Discharge Date/Disposition Nov 19, 2016 Home Diagnosis Principal Diagnosis: Tarlov cyst, Sacrum Procedure(s) Performed Decompression Sacrum and Tarlov cyst Admission Physical Exam As per Admitting History & Physical. Discharge Instructions Please refer to the electronic Patient Visit Report (Discharge Instructions) for additional information. Patient was admitted to my service on November 17 for decompression of the sacrum and the Tarlov cyst grade she is done well. Her feet ambulatory with walker on the and november discharged home improved stable condition no apparent complications afebrile wound clean dry.
[2016-11-19 09:18] VITALS: BP 118/79; PULSE 62; TEMP 36.5; O2SAT 95
[2017-01-23] MEDS ORDERED: GABA-113 PO (11:28)
[2017-01-23] MEDS ORDERED: FRCT/ PO (11:28)
[2017-01-23] MEDS ORDERED: MISCCAP80 PO (11:28)
[2017-01-23] MEDS ORDERED: MELO15TA4 PO (11:28)
[2017-01-23] MEDS ORDERED: AMIT100T2 PO (11:28)
[2017-01-23] MEDS ORDERED: MOML PO (11:30)
[2017-01-23] MEDS ORDERED: DOCU-94 PO (11:30)
== END 2016-11-19 10:35 | disposition home or self-care (01) ==
LOC: C.ACU 06:36 → C.3E 10:13 → ENRESERV 10:42
PROVIDERS: ADMIT Orthopaedic Surgery Orthopaedic Surgery of the Spine; ATTEND Orthopaedic Surgery Orthopaedic Surgery of the Spine
DX: M71.38 Other bursal cyst, other site (principal); M54.5 Low back pain; Z79.899 Other long term (current) drug therapy

== ENCOUNTER → 2017-12-11 | Outpatient (CLI) | payer OTHER ==
[~2017-12-11] MED LIST changes: +AMIT100T2 PO; -AMT50 PO; -CALC-354 PO; -CEFAZOLIN 2000 MG/60 ML D5W IV SCH; +DOCU-94 PO; +FRCT/ PO; +GABA-113 PO; -LACTATED RINGER'S 1000ML 1,000 ML IV SCH; +MELO-84 PO; -MELO7.5T5 PO; +MISCCAP80 PO; +MOML PO; -MULT-920 PO; -NITR-5 PO; +PROC10TA PO; -PROC1TAB5 PO; -SODIUM CHLORIDE 0.9% 1000ML 1,000 ML IV SCH; -TRAM-10 PO
[2017-12-11 14:49] LABS: BASO % 0.8 %; BASO ABS # 0.04 K/uL (0-0.2); EOS % 5.3 %; EOS ABS # 0.28 K/uL (0-0.5); HEMATOCRIT 37.6 % (37-47); HEMOGLOBIN 12.4 g/dL (12.0-16.0); IG# 0.01 K/uL (0.00-0.02); LYMPH % 28.1 %; LYMPH ABS # 1.48 K/uL (1.2-3.4); MEAN CELL VOLUME 94.9 fL (80-100); MEAN CORPUSCULAR HEMOGLOBIN 31.3 pg (25-34); MEAN PLATELET VOLUME 10.4 fL (7.4-10.4); MONO % 6.8 %; MONO ABS # 0.36 K/uL (0.11-0.59); NEUT % 58.8 %; NEUT ABS # 3.09 K/uL (1.4-6.5); PLATELET COUNT 270 K/uL (130-400); RED CELL DISTRIBUTION WIDTH CV 13.2 % (11.5-14.5); RED CELL DISTRIBUTION WIDTH SD 45.9 fL (36.4-46.3); WHITE BLOOD COUNT 5.26 K/uL (4.8-10.8)
[2017-12-11 15:13] LABS: ALBUMIN 3.7 gm/dl (3.4-5.0); ALKALINE PHOSPHATASE 50 U/L (45-117); ALT/SGPT 28 U/L (12-78); AST/SGOT 17 U/L (15-37); BLOOD UREA NITROGEN 17 mg/dl (7-18); CARBON DIOXIDE 28 mmol/L (21-32); CHOLESTEROL 211 mg/dl (0-200); CREATININE 0.89 mg/dl (0.60-1.20); GLUCOSE 86 mg/dl (70-99); LDL CHOLESTEROL CALCULATED 113 mg/dl; POTASSIUM 3.9 mmol/L (3.5-5.1); SODIUM 138 mmol/L (136-145); TOTAL PROTEIN 7.6 gm/dl (6.4-8.2)
== END | disposition home or self-care (01) ==
LOC: C.LAB1850 12:21
PROVIDERS: ATTEND Internal Medicine
DX: F41.9 Anxiety disorder, unspecified (principal); R39.9 Unspecified symptoms and signs involving the genitourinary system; Z87.898 Personal history of other specified conditions; Z13.220 Encounter for screening for lipoid disorders